=== PATIENT | female | born 1990 | race Caucasian/White ===

== ENCOUNTER → 2020-12-25 11:44 | Outpatient (CLI) | payer BC, SELFPAY ==
[2020-12-25 10:29] VITALS: BMI 68.9
[2020-12-25 12:00] LABS: Absolute Lymphocyte Count 2.66 X10^3/uL (0.83-4.51); Basophil# 0.04 X10^3/uL; Basophil% 0.4 % (0-1); Eosinophil# 0.15 X10^3/uL; Eosinophils% 1.6 % (0-5); Hematocrit 39.7 % (37-47); Hemoglobin 12.1 g/dL (12.0-15.0); Lymphocyte # 2.66 X10^3/ul (0.83-4.51); Lymphocyte % 28.1 % (19-41); Mean Corp Hgb Conc 30.5 g/dL (32-36); Mean Corpuscular Hgb 25.7 pg (27.0-32.0); Mean Corpuscular Volume 84.5 fL (81-99); Mean Platelet Vol. 9.8 fl (6.2-12.0); Monocyte# 0.57 X10^3/uL; NRBC Flagged by Analyzer 0 % (0-5); Neutrophil # 6.02 X10^3/uL (2.7-7.7); Neutrophil % 63.7 % (47-70); Platelet Count 453 K/mm3 (150-450); RBC Distribution Width CV 14.5 % (11.6-14.6); RBC Distribution Width SD 44.6 fl (35.1-43.9); White Blood Count 9.5 K/mm3 (4.4-11.0)
== END ==
PROVIDERS: PCP Internal Medicine; Visit Provider Obstetrics & Gynecology
DX: N92.0 Excessive and frequent menstruation with regular cycle (principal)
CPT/HCPCS: 36415; 84443; 85025

== ENCOUNTER → 2022-01-21 | Outpatient (CLI) | payer BC, SELFPAY ==
--- NOTE | 2022-01-21 | EMB_PTH ---
PATIENT: DONNY MUNOZ LOC: [facility] U#:[id number] AGE/SX: 31/F ROOM: RE01/21/[address]: Dr. Paige Hernandez MD : [id number] BED: DIS: 01/21/2022 SPEC #: [id number] RECD: 01/21/22 16:08 STATUS: ANJEL ZAMORABrendon #: [id number] CHELSEA: 01/21/22 00:[address]: Paige Hernandez DEPT: SURGICAL PATHOLOGY RECD BY: Karol Walker ENTERED: 01/22/22 08:15 SP TYPE: ENDOM BX/C ABBEY DR: Dr. Jasmyn Bergman DO Tissues: Endometrium, NOS Procedures: Surgery Specimen Level IV HEADER OPERATION: Endometrial biopsy PRE-OP DIAGNOSIS: Abnormal uterine bleeding TISSUE SUBMITTED: Endometrial biopsy MICROSCOPIC DIAGNOSIS Endometrial biopsy: Fragments of weakly secretory endometrium with focal glandular break down. SJ 01/22/2022 COMMENT Correlation with clinical findings and appropriate follow up are necessary. MICROSCOPIC DESCRIPTION Slides are reviewed. GROSS DESCRIPTION Received is one container labeled with the patient's name and not further designated. The specimen consists of multiple fragments of hemorrhagic soft tissue mixed with mucoid tissue that in aggregate measure 3 x 2.5 x 0.3 cm. The specimen is totally submitted in one cassette. / SJ:carlos 01/22/2022 :5 CPT: 65110
[2022-01-28 07:37] LABS: HPV APTIMA, High Risk Negative (Negative)
== END | disposition home or self-care (01) ==
PROVIDERS: PCP Internal Medicine; Visit Provider Obstetrics & Gynecology
DX: Z12.4 Encounter for screening for malignant neoplasm of cervix (principal)
CPT/HCPCS: 87624; 88175; 88305; G0145

== ENCOUNTER → 2023-02-07 | Outpatient (CLI) | payer BC, SELFPAY ==
[2023-02-07 11:52] LABS: Absolute Lymphocyte Count 2.18 X10^3/uL (0.83-4.51); Absolute Neutrophil Count 4.6 X10^3/uL (2.0-7.7); Basophil# 0.04 X10^3/uL; Basophil% 0.5 % (0-1); Eosinophil# 0.11 X10^3/uL; Eosinophils% 1.5 % (0-5); Hematocrit 41.9 % (37-47); Hemoglobin 13.3 g/dL (12.0-15.0); Lymphocyte # 2.18 X10^3/ul (0.83-4.51); Mean Corp Hgb Conc 31.7 g/dL (32-36); Mean Corpuscular Volume 78.8 fL (81-99); Mean Platelet Vol. 9.7 fl (6.2-12.0); NRBC Flagged by Analyzer 0 % (0-5); Neutrophil # 4.58 X10^3/uL (2.7-7.7); Neutrophil % 60.7 % (47-70); Platelet Count 408 K/mm3 (150-450); RBC Distribution Width CV 16.9 % (11.6-14.6); RBC Distribution Width SD 48.1 fl (35.1-43.9); Red Blood Count 5.32 M/mm3 (4.2-5.4); White Blood Count 7.5 K/mm3 (4.4-11.0)
[2023-02-07 12:33] LABS: T4 Free Direct 1.39 ng/dL (0.76-1.46); Thyroid Stim Hormone (TSH) 4.16 uIU/mL (0.358-3.74)
== END | disposition home or self-care (01) ==
PROVIDERS: PCP Internal Medicine; Referring Provider Nurse Practitioner Women's Health; Visit Provider Nurse Practitioner Women's Health
DX: Z13.29 Encounter for screening for other suspected endocrine disorder (principal); N93.9 Abnormal uterine and vaginal bleeding, unspecified; Z87.42 Personal history of other diseases of the female genital tract
CPT/HCPCS: 36415; 84439; 84443; 85025